=== PATIENT | female | born 1980 | race Caucasian/White ===

== ENCOUNTER 2023-10-20 11:02 | Emergency (ER) | payer OTHER, SELFPAY ==
[2023-10-20 11:14] VITALS: BP 132/96
--- NOTE | 2023-10-20 13:16 | ED.GENMED ---
History of Present Illness
General
Chief Complaint: Musculo-Skeletal Complaint
Source: patient
Exam Limitations: none
Time Seen by Provider: 10/20/23 12:41
Nursing documentation reviewed up to this point in time: agreed with
Travel History
Have you had any contact with someone who has COVID-19?: No
Do you have any symptoms of coronavirus? Fever > 100 degrees, chills, cough, shortness of breath, sore throat, loss of taste or smell, muscle aches, or headache?: No
History of Present Illness
History of Present Illness:
43-year-old female with no medical problems presents with right foot pain and swelling after stepping on the side of her April slip on boot and inverting her right ankle. She has not been able to weight-bear fully but can put some heel pressure
down. She is moderate amount of swelling and bruising to the foot. She did not take anything for pain. She is iced off-and-on.
Past History
Past History
ED Past Medical History: None
ED Past Surgical History: Cholecystectomy
Social History
Tobacco: Former smoker
Alcohol: Occasional
Personal:
Living: with family
Employment: Employed
Family History
Family History: Other (Contributory)
Review of Systems
Review of Systems
Allergies reviewed?: Yes
All Other Systems: Not applicable
Phy Exam
Physical Exam
Physical Exam:
GENERAL: Alert , in no apparent distress, comfortable at rest
HEAD: NCAT
CV: 2+ DP PULSES B/L
NEUROLOGICAL: Alert and oriented, no focal neuro deficits, , 5/5 strength, sensation intact
SKIN: Warm and dry, bruising to right foot dorsum
MUSCULOSKELETAL: mod foot swelling dorsally along the mid foot and lateral 5th metatarsal which is very tender
normla sensation
ankle notnender
full rom of ankle
prxoimally knee and tib/fib notnneder, full rom
PSYCH: Normal and appropriate interaction.
Course
Orders/Labs/Results
Orders:
Orders
10/20/23 11:16
Foot, Right 3 View [CR Foot - Right Min 3 Views] Urgent
Comment: right
Reason For Exam: twisted foot going down two steps last night
Vital Signs
Initial and Last Documented VS:
Initial Vital Signs
Temp Pulse Resp BP Pulse Ox
99.0 F 77 16 132/96 98
10/20/23 11:14 10/20/23 11:14 10/20/23 11:14 10/20/23 11:14 10/20/23 11:14
Last Documented Vital Signs
Temp Pulse Resp BP Pulse Ox
99.0 F 77 16 132/96 98
10/20/23 11:14 10/20/23 11:14 10/20/23 11:14 10/20/23 11:14 10/20/23 11:14
MDM/Problems Addressed
Differential Diagnosis Includes:
foot fracture, contusion, ankle sprain
MDM/Problems Addressed:
43 y/o F with foot swelling, bruising after stepping off the side of her UGG
sts, bruising, tednerness to 5th metatarsal
xray reviewed by me
pt has avulsion fx of the proximal 5th Metatarsal
pseudojones
spoke with dr. herron from ortho, ok to WBAT in a boot
will give both crutches and boot
f/u ortho.
*Critical Care Note
Total Time (30-74mins, 75-104mins- exclusive of procedures): Not Applicable
ED Attending Note
-
Portions of this chart may have been created with voice recognition software.� Occasional wrong word or��sound alike� substitutions may have occurred due to the inherent limitations of voice recognition software.
Discharge Plan
Departure
Patient Disposition: Home (Routine Discharge)
Date of Disposition: 10/20/23
Time of Disposition: 13:19
Patient with high blood pressure during this ER visit?: No
Covid-19: Not Applicable
Discharge Problem:
Metatarsal fracture
Instructions: Foot Avulsion Fracture (DC)
Prescriptions:
No Action
sertraline 50 MG tablet
50 mg PO QPM
[id number] [Excedrin Extra Strength] 1 TABLET tablet
1 tab PO DAILYPRN PRN (Reason: pain)
Referrals:
Denzel De La Cruz DO [Family Provider] - Follow up in 5-7 days
Kamran Tucker DPM [Active] - Follow up in 5-7 days (foot and ankle specialist)
Activity Restrictions/Additional Instructions:
You broke your fifth metatarsal. This is a weightbearing as tolerated fracture
You can use the boot to help you walk around. You can use crutches if you would like to for over the next couple of days. If you would prefer not to wear the boot while you are using crutches that is ok, but if weight bearing use the boot
ice, elevate
motrin
follow up with ortho
return for any cocnerns.
Interventions
Interventions:
*Risk Screen - Suicide Last Done: 10/20/23 12:35
*General Assessment Last Done: 10/20/23 12:35
*Neglect/Abuse Screening Last Done: 10/20/23 12:35
*ED COVID-19 Vaccine History Last Done: 10/20/23 11:14
ED-Musculoskeletal Assessment Last Done: 10/20/23 12:36
== END 2023-10-20 14:04 | disposition home or self-care (01) ==
LOC: EMR 11:02
PROVIDERS: EMERGENCY PHYSICIAN Emergency Medicine; FAMILY PHYSICIAN Family Medicine
DX: S92.351A Displaced fracture of fifth metatarsal bone, right foot, initial encounter for closed fracture (principal); X50.1XXA Overexertion from prolonged static or awkward postures, initial encounter; Z87.891 Personal history of nicotine dependence; Z90.49 Acquired absence of other specified parts of digestive tract
CPT/HCPCS: 99283; 29125; 73630

== ENCOUNTER → 2024-02-17 09:29 | Outpatient (REF) | payer OTHER, SELFPAY | LOC: HWWDC 09:29 | PROVIDERS: ATTENDING PHYSICIAN Obstetrics & Gynecology; FAMILY PHYSICIAN Family Medicine | DX: Z12.31 Encounter for screening mammogram for malignant neoplasm of breast (principal) | CPT/HCPCS: 77063; 77067 ==

== ENCOUNTER → 2024-06-08 06:13 | Day surgery (SDC) | payer OTHER, SELFPAY | LOC: GI 06:13 | PROVIDERS: ATTENDING PHYSICIAN Internal Medicine; FAMILY PHYSICIAN Family Medicine | DX: Z12.11 Encounter for screening for malignant neoplasm of colon (principal); K64.8 Other hemorrhoids | CPT/HCPCS: G0121 ==

== ENCOUNTER → 2024-07-27 12:51 | Outpatient (REF) | payer OTHER, SELFPAY | LOC: WDC 12:51 | PROVIDERS: ATTENDING PHYSICIAN Obstetrics & Gynecology; FAMILY PHYSICIAN Family Medicine | DX: R92.2 Inconclusive mammogram (principal) | CPT/HCPCS: 76641 ==

== ENCOUNTER 2025-01-18 13:05 | Outpatient (RCR) | payer OTHER, SELFPAY | END 2025-01-18 23:59 | disposition home or self-care (01) | LOC: RPT 13:05 | PROVIDERS: ATTENDING PHYSICIAN Student in an Organized Health Care Education/Training Program; FAMILY PHYSICIAN Physician Assistant Medical | DX: S92.351A Displaced fracture of fifth metatarsal bone, right foot, initial encounter for closed fracture (principal); S92.351D Displaced fracture of fifth metatarsal bone, right foot, subsequent encounter for fracture with routine healing (principal); M76.61 Achilles tendinitis, right leg; X58.XXXD Exposure to other specified factors, subsequent encounter; M76.71 Peroneal tendinitis, right leg; Z73.6 Limitation of activities due to disability; X58.XXXA Exposure to other specified factors, initial encounter | CPT/HCPCS: 97110; 97112; 97140; 97162 ==

== ENCOUNTER 2025-02-22 13:05 | Outpatient (RCR) | payer OTHER, SELFPAY | END 2025-02-22 23:59 | disposition home or self-care (01) | LOC: RPT 13:05 | PROVIDERS: ATTENDING PHYSICIAN Student in an Organized Health Care Education/Training Program; FAMILY PHYSICIAN Physician Assistant Medical | DX: S92.351A Displaced fracture of fifth metatarsal bone, right foot, initial encounter for closed fracture (principal); S92.351D Displaced fracture of fifth metatarsal bone, right foot, subsequent encounter for fracture with routine healing (principal); M76.61 Achilles tendinitis, right leg; X58.XXXD Exposure to other specified factors, subsequent encounter; M76.71 Peroneal tendinitis, right leg; Z73.6 Limitation of activities due to disability; X58.XXXA Exposure to other specified factors, initial encounter | CPT/HCPCS: 97110; 97112; 97140 ==

== ENCOUNTER → 2025-02-23 13:48 | Outpatient (REF) | payer OTHER, SELFPAY | LOC: WDC 13:48 | PROVIDERS: ATTENDING PHYSICIAN Obstetrics & Gynecology; FAMILY PHYSICIAN Family Medicine | DX: Z12.31 Encounter for screening mammogram for malignant neoplasm of breast (principal); R92.8 Other abnormal and inconclusive findings on diagnostic imaging of breast | CPT/HCPCS: 76642; 77063; 77067 ==

== ENCOUNTER → 2025-08-23 08:02 | Outpatient (REF) | payer OTHER, SELFPAY | LOC: WDC 08:02 | PROVIDERS: ATTENDING PHYSICIAN Student in an Organized Health Care Education/Training Program; FAMILY PHYSICIAN Family Medicine | DX: R92.8 Other abnormal and inconclusive findings on diagnostic imaging of breast (principal) | CPT/HCPCS: 76642 ==